=== PATIENT | female | born 1935 | race Caucasian/White ===

== ENCOUNTER 2016-08-08 13:04 | Emergency (ER) | payer OTHER ==
[~2016-08-08] VITALS: Ht 154.9 cm; Wt 56.0 kg
[~2016-08-08 13:04] MED LIST: CORE3.12 PO; COUM2.5T PO; ECOT81TA2 PO; FENO160T2 OR; FENO50TA PO; FERR324T4 PO; WARF2.5T40 PO; WARF3TAB PO
[2016-08-08 13:08] VITALS: BP 189/92; PULSE 60; RESP 18; TEMP 98.1; O2SAT 99
--- NOTE | 2016-08-08 13:33 | PD ---
HPI Chief Complaint: Headache Time Seen by Provider: 13:15 Travel History International Travel<30 days: No Contact w/Intl Traveler<30days: No Traveled to known affect area: No History of Present Illness HPI Patient is 81-year-old female with history of age-related hearing loss or presents emergency department with complaint of tinnitus. Patient states that over the course the last 3 weeks she has had a progressive hearing loss and tinnitus. She describes this as a muffled sound, as though "I'm deep in a well ". This is associated with tinnitus. The tinnitus is a dull, low pitched, constant for. There is no pulsatile tinnitus. This is bilateral. Patient wears hearing aids at baseline and went to have them adjusted, but it did not seem to help. She has not had any drainage, denies any trauma. She states that sometimes the tinnitus gets so bad it gives her a minimal frontal headache , which resolves with a single dose of Tylenol. She is headache free at this time. Patient presents the ER today after prompting of her daughter, primarily concerned that she may be having heart related or stroke problems. 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)) GERD: No Glaucoma: No Genitourinary: No Hepatitis: No Hiatal Hernia: No Hypertension: Yes Immune Disorder: No Kidney Stones: No Neurologic: No Psychiatric: No Reproductive: No Myocardial Infarction: Yes Radiation Therapy: No Renal Failure: Yes (STAGE 3) Sickle Cell Disease: No Sleep Apnea: No Thyroid Disease: No Ulcer: No Menopausal: Yes Past Surgical History Appendectomy: No Cardiac Surgery: Yes (1 STENT ) Cholecystectomy: No Coronary Stent: Yes ("2007,one stent") Other Surgery: Yes Social History Alcohol Use: No Tobacco Use: No Substance Use: No Allergies-Medications (Allergen,Severity, Reaction): Coded Allergies: Penicillin (Verified Allergy, Severe, hives, 08/08/16) Sulfa (Verified Allergy, Severe, UNKNOWN, 08/08/16) Reported Meds & Prescriptions Reported Meds & Active Scripts Active Reported Warfarin Sodium 2.5 mg (Warfarin Sodium) 2.5 Mg Tab 2.5 Mg PO TUES, THURS, SAT, ANDRADE Warfarin Sodium 3 mg (Warfarin Sodium) 3 Mg Tab 3 Mg PO [id number]@16 Ferrous Sulfate 325 Mg Tab 325 Mg PO BID Coreg (Carvedilol) 3.125 Mg Tab 3.125 Mg PO BID Coumadin 2.5 mg (Warfarin Sodium) 2.5 Mg Tab 1.25 Mg PO DAILY START 07/06/11 Tricor (Fenofibrate) 145 Mg Tab 200 Mg PO HS Ecotrin (Aspirin) 81 Mg Tabec 81 Mg PO DAILY Fenofibrate 160 Mg Tab 115 Mg OR HS Review of Systems Except as stated in HPI: all other systems reviewed are Neg Physical Exam Narrative GENERAL: Pleasant elderly female in no acute distress SKIN: Focused skin assessment warm/dry. HEAD: Atraumatic. Normocephalic. EYES: Pupils equal and round. No scleral icterus. No injection or drainage. ENT: TMs clear bilaterally. No cerumen impaction. No nasal bleeding or discharge. Mucous membranes pink and moist. NECK: Supple without carotid bruit CARDIOVASCULAR: Regular rate and rhythm. No murmur appreciated. RESPIRATORY: No accessory muscle use. MUSCULOSKELETAL: Moves all extremities normally NEUROLOGICAL: Awake and alert. No obvious cranial nerve deficits. Motor grossly within normal limits. Normal speech. PSYCHIATRIC: Appropriate mood and affect; insight and judgment normal. Data Data Last Documented VS Vital Signs Date Time Temp Pulse Resp B/P Pulse Ox O2 Delivery O2 Flow Rate FiO2 08/08/16 13:08 98.1 60 18 189/92 99 MDM Medical Decision Making Medical Screen Exam Complete: Yes Emergency Medical Condition: Yes Medical Record Reviewed: Yes Differential Diagnosis 81-year-old female here with complaint of 3 weeks of worsening bilateral tinnitus and slight hearing loss. Differential includes conductive hearing loss , Mnire's disease, idiopathic tinnitus. Given lack of pulsatile tinnitus my suspicion for vascular etiology is low. Narrative Course Patient was reassured. I do not think she warrants neuroimaging at this time. She has appointment with ENT scheduled and was Encouraged to keep this. Diagnosis Primary Impression: Tinnitus Qualified Code: H93.13 - Tinnitus, bilateral Referrals: Ear / Nose / Throat Specialist call for appointment Additional Instructions: Remove hearing aids if this makes tinnitus worse. Follow-up with ENT/ real estate paralegal as discussed. Med/Other Pt SpecificInfo: No Change to Meds Disposition: DISCHARGE HOME Condition: Stable Kelsi Portillo MD August 08, 2016 13:33
[2016-08-08] MEDS ORDERED: CHOL20005 PO (13:43)
[2016-08-08] MEDS ORDERED: WARF-18 PO (13:43)
[2016-08-08] MEDS ORDERED: ASPI81CH37 CHEW (13:43)
[2016-08-08] MEDS ORDERED: PROP120C PO (13:43)
== END 2016-08-08 13:49 | disposition home or self-care (01) ==
LOC: PHED 13:04
DX: H93.13 Tinnitus, bilateral (principal); I25.2 Old myocardial infarction; N18.3 Chronic kidney disease, stage 3 (moderate); E78.00 Pure hypercholesterolemia, unspecified; Z95.1 Presence of aortocoronary bypass graft; I13.10 Hypertensive heart and chronic kidney disease without heart failure, with stage 1 through stage 4 chronic kidney disease, or unspecified chronic kidney disease; Z86.718 Personal history of other venous thrombosis and embolism
CPT/HCPCS: 99283